=== PATIENT | female | born 1990 | race Two or more races ===

== ENCOUNTER 2024-09-01 13:37 | Emergency (ER) | payer BC, SELFPAY ==
[2024-09-01 13:38] VITALS: BMI 24.6
[2024-09-01 13:52] VITALS: BP 113/71; PULSE 71; RESP 18; TEMP 36.9; O2SAT 99
--- NOTE | 2024-09-01 14:11 | XR_ITS ---
Examination: PA lateral chest 2 views TECHNIQUE: Upright PA lateral chest 2 views INDICATIONS: Shortness of breath 2 weeks with burning sensation in the chest with breathing FINDINGS: Normal heart size Lungs are clear. The osseous structures are intact and mildly demineralized IMPRESSION: No active
--- NOTE | 2024-09-01 14:12 | PD.EDRME ---
Rapid Medical Screening Exam E Arrival date/time: 09/01/24 13:37 This is a 34-year-old female who presents to the emergency department with complaints of cough, chest pain with deep inspiration. Recently treated for bronchitis. I have greeted and performed a focused initial assessment of this patient. Initial appropriate labs ordered at this time. A comprehensive ED assessment and evaluation of the patient and analysis of all test and completion of medical decision making process will be conducted by additional ED provider. Chief Complaint: Shortness of Breath/Dyspnea Time Seen by Provider: 09/01/24 13:57 Vital signs: Vital Signs Temperature 98.5 F 09/01/24 13:52 Pulse Rate 71 09/01/24 13:52 Respiratory Rate 18 09/01/24 13:52 Blood Pressure 113/71 09/01/24 13:52 Pulse Oximetry (%) 99 09/01/24 13:52 Oxygen Delivery Method Room Air 09/01/24 13:52
[2024-09-01 15:11] LABS: Basophils % (Auto) 0 % (0-2.5); Eosinophils # (Auto) 0.2 Thou/mm3 (0.0-0.5); Eosinophils % (Auto) 3 % (0-10); Hematocrit 37.6 % (36.0-46.0); Hemoglobin 12.8 g/dL (12.0-16.0); Immature Granulocytes % (Auto) 0 % (0-0); Lymphocytes # (Auto) 1.5 Thou/mm3 (1.0-4.8); Lymphocytes % (Auto) 33 % (10-50); Mean Corpuscular Hemoglobin 31.5 pg (25.0-35.0); Mean Corpuscular Volume 93 fL (80-100); Monocytes # (Auto) 0.5 Thou/mm3 (0.0-0.8); Monocytes % (Auto) 11 % (0-12); Neutrophils # (Auto) 2.4 Thou/mm3 (1.8-7.7); Neutrophils % (Auto) 52 % (37-80); Nucleated Red Blood Cell % 0 /100 WBC (0); Platelet Count 163 Thou/mm3 (140-440); RDW Standard Deviation 44.6 fL (36.4-46.3); Red Blood Count 4.06 Miln/mm3 (4.00-5.20); White Blood Count 4.6 Thou/mm3 (3.6-11.0)
[2024-09-01 15:24] LABS: D-Dimer < 250 ng/mL (<600)
[2024-09-01 15:28] LABS: HCG,Qualitative Serum Negative
[2024-09-01 15:29] LABS: Alanine Aminotransferase 11 U/L (10-49); Albumin, Serum 4.3 gm/dL (3.5-5.0); Albumin/Globulin Ratio 1.7 (1.2-2.2); Alkaline Phosphatase 67 U/L (46-116); Anion Gap 4 (7-16); Aspartate Amino Transferase 20 U/L (0-34); BUN/Creatinine Ratio 8 Ratio (12-20); Bilirubin,Total 0.3 mg/dL (0.3-1.2); Blood Urea Nitrogen 6 mg/dL (9-23); Calcium 9.1 mg/dL (8.3-10.6); Calcium (Corrected) 9.1 mg/dL (8.5-10.1); Carbon Dioxide 27.7 mMol/L (20.0-31.0); Chloride 107 mMol/L (98-107); Creatinine (Component) 0.8 mg/dL (0.6-1.3); Estimated Creatinine Clearance 73.8 mL/min (>60); Globulin 2.5 gm/dL (2.3-3.5); Glucose 86 mg/dL (74-106); Osmolality,Calculated 274 (275-295); Potassium 4.2 mMol/L (3.4-5.1); Sodium 139 mMol/L (136-145); Total Protein 6.8 gm/dL (5.7-8.2); eGFR > 60 See Note
--- NOTE | 2024-09-01 18:36 | PD.EDADULT ---
ED General RME/HPI General Chief complaint: Shortness of Breath/Dyspnea Stated complaint: SENT BY PCP R/O PE Time Seen by Provider: 09/01/24 13:57 Arrival date/time: 09/01/24 13:37 RME / HPI RME / HPI narrative: 34-year-old female who presents to the emergency department with complaints of cough, chest pain with deep inspiration. This been ongoing for the last 2 weeks, severity mild. Recently treated for bronchitis. Was seen by PCP and was given antibiotic which the patient completed few days ago. Came back today for follow-up and was referred here to rule out PE. Patient denies any tachycardia denies any fever denies any other complaints. Related Data Home Medications ?Medication ?Instructions ?Recorded ?Confirmed levothyroxine 175 mcg tablet 175 mcg PO QDAY 01/04/18 04/26/21 (Synthroid) vortioxetine 5 mg tablet 5 mg PO QDAY 04/26/21 04/26/21 (Trintellix) pregabalin 200 mg capsule (Lyrica) 200 mg PO TID 04/27/21 04/27/21 Previous Rx's ?Medication ?Instructions ?Recorded ibuprofen 600 mg tablet 600 mg PO TID PRN pain #30 tabs 09/01/24 Allergies Allergy/AdvReac Type Severity Reaction Status Date / Time codeine Allergy Severe Itching Verified 01/19/24 15:16 sumatriptan AdvReac Severe paralysis Verified 01/19/24 15:16 Review of Systems Review of Systems Narrative Review of Systems: Review of system reviewed and within normal limits except mentioned in HPI ED Exam Narrative Physical exam: VITAL SIGNS: Reviewed. GENERAL APPEARANCE: Alert and interactive, follows commands, no acute distress, HEAD AND FACE: Non-traumatic. ENT: PERRL, pink conjunctivitis, eyelid no trauma, Mucous membrane moist. NECK: Supple, nontender, no nuchal rigidity. CHEST: No tenderness, no crepitus, no paradoxical movement, no retractions. LUNGS: Clear, well ventilated, symmetric, no rales, no wheezing, no ronchi, no stridor, good breath sounds bilaterally. HEART: Regular rate, regular rhythm, no murmur, no gallops. ABDOMEN: Soft, positive bowel sounds, nondistended, no guarding, nontender, no rebound, no masses, RECTAL: Deferred. GENITAL: Deferred. NEUROLOGICAL: Gross motor function intact sensory function intact, Appropriate for age. MUSCULOSKELETAL: low back nontender, full range of motion. EXTREMITIES: Nontender, full range of motion. SKIN: Color pink, dry, no rash, no lacerations, no abrasions, no contusions. LYMPHATICS: Deferred. Course Quality Measures none Orders Category Date Time Status XR chest 2V Stat Exams 09/01/24 14:11 Completed CBC Stat Lab 09/01/24 14:55 Completed CMP [Comprehensive Metabolic Panel] Stat Lab 09/01/24 14:55 Completed D-Dimer Stat Lab 09/01/24 14:55 Completed HCG,Qualitative Serum Stat Lab 09/01/24 14:55 Completed Vital Signs Vital signs: Vital Signs Temperature 98.5 F 09/01/24 13:52 Pulse Rate 71 09/01/24 13:52 Respiratory Rate 18 09/01/24 13:52 Blood Pressure 113/71 09/01/24 13:52 Pulse Oximetry (%) 99 09/01/24 13:52 Oxygen Delivery Method Room Air 09/01/24 13:52 MDM Patient data External records reviewed:: None Clinical information provided by:: none Social determinants that could affect healthcare access:: none Patient has the following chronic illnesses:: None How is presenting disease/condition affected by chronic disease/condition?: no chronic disease Evaluation data The following diagnostics were reviewed and interpreted by me:: lab results and radiology exam(s) Lab and/or radiology exams considered but not ordered:: Plan Interpretation Summary: I personally reviewed and interpreted the x-ray of this patient. There is no acute abnormalities found, no infiltrates no pneumothorax no hemothorax normal chest x-ray. Review of other structures was without significant abnormal findings also. I additionally reviewed the radiologist report and agree with the interpretation. D-dimer is normal there is of the labs unremarkable Medications Medications considered but not ordered:: none Medication administrations:: None Consultations Consultation(s) initiated? (list below): No Diagnosis Differential Diagnosis ED Complaint MDM: PE, chest pain, bronchitis Most likely diagnosis given after review of the tests above:: Chest pain, bronchitis Admission Indicated Admission indicated?: not indicated Explain why admission is indicated or not indicated:: None Admission Request Was there a request for admission?: No Disposition Plan Disposition Plan: Discharge Discharge Attestation Discharge Attestation: The patient was given an opportunity to ask questions and understood the discharge instructions. Discharge instructions specifically effects, indications for sooner follow up or return to the emergency department, and the expected course of current diagnosis. Patient condition: Stable Medical Decision Making MDM Narrative MDM Narrative: 34-year-old female who presents to the emergency department with complaints of cough, chest pain with deep inspiration. This been ongoing for the last 2 weeks, severity mild. Recently treated for bronchitis. Was seen by PCP and was given antibiotic which the patient completed few days ago. Came back today for follow-up and was referred here to rule out PE. Patient denies any tachycardia denies any fever denies any other complaints. Patient's workup today all came back normal. D-dimer is normal also. Results discussed with the patient. Patient chest pain could be related to her bronchitis. Differential Diagnosis Differential Diagnosis: PE, chest pain, bronchitis Lab Data 09/01/24 14:55 09/01/24 14:55 Labs: Lab Results 09/01/24 Range/Units 14:55 WBC 4.6 (3.6-11.0) Thou/mm3 RBC 4.06 (4.00-5.20) Miln/mm3 Hgb 12.8 (12.0-16.0) g/dL Hct 37.6 (36.0-46.0) % MCV 93 (80-100) fL MCH 31.5 (25.0-35.0) pg MCHC 34.0 (31.0-37.0) g/dl RDW Std Deviation 44.6 (36.4-46.3) fL Plt Count 163 (140-440) Thou/mm3 Neut % (Auto) 52 (37-80) % Lymph % (Auto) 33 (10-50) % Larue % (Auto) 11 (0-12) % Eos % (Auto) 3 (0-10) % Baso % (Auto) 0 (0-2.5) % Neut # (Auto) 2.4 (1.8-7.7) Thou/mm3 Lymph # (Auto) 1.5 (1.0-4.8) Thou/mm3 Larue # (Auto) 0.5 (0.0-0.8) Thou/mm3 Eos # (Auto) 0.2 (0.0-0.5) Thou/mm3 Baso # (Auto) 0.0 (0.0-0.2) Thou/mm3 Immature Gran # (Auto) 0.00 (0.00-0.00) Thou/mm3 Absolute Nucleated RBC 0.00 (0.00-0.00) Thou/mm3 Immature Gran % 0 (0-0) % Nucleated RBC % 0 (0) /100 WBC D-Dimer < 250 (<600) ng/mL Sodium 139 (136-145) mMol/L Potassium 4.2 (3.4-5.1) mMol/L Chloride 107 (98-107) mMol/L Carbon Dioxide 27.7 (20.0-31.0) mMol/L Anion Gap 4 L (7-16) BUN 6 L (9-23) mg/dL Creatinine 0.8 (0.6-1.3) mg/dL Estim Creat Clear Calc 73.8 (>60) mL/min eGFR > 60 (60 - ) See Note BUN/Creatinine Ratio 8 L (12-20) Ratio Glucose 86 (74-106) mg/dL Calculated Osmolality 274 L (275-295) Calcium 9.1 (8.3-10.6) mg/dL Corrected Calcium 9.1 (8.5-10.1) mg/dL Total Bilirubin 0.3 (0.3-1.2) mg/dL AST 20 (0-34) U/L ALT 11 (10-49) U/L Alkaline Phosphatase 67 (46-116) U/L Total Protein 6.8 (5.7-8.2) gm/dL Albumin 4.3 (3.5-5.0) gm/dL Globulin 2.5 (2.3-3.5) gm/dL Albumin/Globulin Ratio 1.7 (1.2-2.2) HCG, Qual Negative Discharge Plan Plan Patient Disposition: HOME (Self Care) Disposition Comment: stable Prescriptions/Referrals Prescriptions/Med Rec: New ibuprofen 600 mg tablet 600 mg PO TID PRN (Reason: pain) Qty: 30 0RF No Action levothyroxine [Synthroid] 175 mcg tablet 175 mcg PO QDAY Trintellix 5 mg Tablet 5 mg PO QDAY pregabalin [Lyrica] 200 mg Capsule 200 mg PO TID Referrals: SQ Gris Walker MD [Primary Care Provider] - In 1 week Problem List Clinical Impression: Chest pain, Cough Patient/Caregiver Discharge Instructions Discharge Activity: activity as tolerated Education Materials: ED Chest Pain, Noncardiac Additional Instructions: Thank you for the opportunity for serving you today. You are stable for discharged . You are advised to: Follow-up with your PCP in 1 to 2 days Return to ED for worsening of symptoms Increase oral fluids Take medication as prescribed Print Language: Gambian Stand Alone Forms: [employer] Award Info., Patient Portal Info Letter PA/[employer] Supervising Physician PA/[employer] Supervising Physician: MD Rosalva
== END 2024-09-01 19:01 | disposition home or self-care (01) ==
PROVIDERS: Nurse Practitioner Primary Care; Emergency Provider Emergency Medicine; PCP Family Medicine
DX: R05.9 Cough, unspecified (principal); R07.1 Chest pain on breathing
CPT/HCPCS: 36415; 71046; 80053; 84703; 85025; 85379; 99283

== ENCOUNTER → 2025-02-06 | Outpatient (CLI) | payer BC, SELFPAY ==
[2025-02-06 15:30] LABS: Misc Send Out* See Sep Rpt
[2025-02-06 16:38] LABS: Basophils % (Auto) 0 % (0-2.5); Eosinophils # (Auto) 0.1 Thou/mm3 (0.0-0.5); Eosinophils % (Auto) 1 % (0-10); Hematocrit 38.9 % (36.0-46.0); Hemoglobin 13.5 g/dL (12.0-16.0); Immature Granulocytes % (Auto) 0 % (0-0); Immature Granulocytes Auto 0.01 Thou/mm3 (0.00-0.00); Immature Reticulocyte Fraction 4.3 % (3.0-15.9); Lymphocytes # (Auto) 1.5 Thou/mm3 (1.0-4.8); Lymphocytes % (Auto) 31 % (10-50); Mean Corpuscular HGB Conc 34.7 g/dl (31.0-37.0); Mean Corpuscular Hemoglobin 32.2 pg (25.0-35.0); Mean Corpuscular Volume 93 fL (80-100); Monocytes # (Auto) 0.5 Thou/mm3 (0.0-0.8); Monocytes % (Auto) 9 % (0-12); Neutrophils # (Auto) 2.9 Thou/mm3 (1.8-7.7); Neutrophils % (Auto) 59 % (37-80); Nucleated Red Blood Cell % 0 /100 WBC (0); Platelet Count 281 Thou/mm3 (140-440); RDW Standard Deviation 45.1 fL (36.4-46.3); Red Blood Count 4.19 Miln/mm3 (4.00-5.20); Reticulocyte % (Auto) 1.1 % (0.5-1.5); Reticulocyte Absolute Auto 44.8 Biln/L (25.0-75.0); Reticulocyte Hgb Content 35.7 pg (28.0-35.0)
[2025-02-06 17:22] LABS: Alanine Aminotransferase 15 U/L (10-49); Albumin, Serum 4.5 gm/dL (3.5-5.0); Albumin/Globulin Ratio 1.7 (1.2-2.2); Alkaline Phosphatase 75 U/L (46-116); Anion Gap 6 (7-16); Aspartate Amino Transferase 16 U/L (0-34); BUN/Creatinine Ratio 10 Ratio (12-20); Bilirubin,Direct 0.1 mg/dL (0.0-0.3); Bilirubin,Total 0.4 mg/dL (0.3-1.2); Blood Urea Nitrogen 8 mg/dL (9-23); Calcium 9.3 mg/dL (8.3-10.6); Calcium (Corrected) 9.3 mg/dL (8.5-10.1); Carbon Dioxide 27.9 mMol/L (20.0-31.0); Chloride 108 mMol/L (98-107); Creatinine (Component) 0.8 mg/dL (0.6-1.3); Ferritin 78 ng/mL (7.3-270.7); Free T4 (Free Thyroxine) 1.22 ng/dL (0.89-1.76); Globulin 2.6 gm/dL (2.3-3.5); Glucose 86 mg/dL (74-106); Iron 58 mcg/dL (50-170); Osmolality,Calculated 280 (275-295); Potassium 4.5 mMol/L (3.4-5.1); Sodium 142 mMol/L (136-145); Thyroid Stimulating Hormone 4.98 uIU/mL (0.55-4.78); Total Iron Binding Capacity 338 mcg/dL (250-425); Total Protein 7.1 gm/dL (5.7-8.2); eGFR > 60 See Note
[2025-02-06 17:24] LABS: Folate 17.66 ng/mL (>5.38); Vitamin B12 271 pg/mL (211-911)
== END | disposition home or self-care (01) ==
PROVIDERS: PCP Family Medicine; Referring Provider Family Medicine; Visit Provider Family Medicine
DX: E03.8 Other specified hypothyroidism (principal); L29.9 Pruritus, unspecified
CPT/HCPCS: 36415; 80053; 82248; 82607; 82728; 82746; 83540; 83550; 84100; 84439; 84443; 85025; 85046

== ENCOUNTER 2025-03-18 19:58 | Emergency (ER) | payer BC, SELFPAY ==
[2025-03-18 19:59] VITALS: BMI 23.0
[2025-03-18 20:16] VITALS: BP 120/76; PULSE 74; RESP 16; TEMP 37.1; O2SAT 97
--- NOTE | 2025-03-18 20:39 | EDNOTE_ITS ---
ED General RME/HPI General Chief complaint: General Adult/Misc Complain Stated complaint: R SIDE OF FACE AND HEAD Time Seen by Provider: 03/18/25 20:25 Arrival date/time: 03/18/25 19:58 RME / HPI RME / HPI narrative: 34-year-old female presents to the ED with complaint of right ear pain and right facial pain for the past few days but much worse this morning. She denies any fever or chills but she has had a runny nose and nasal congestion. She denies sore throat, cough, nausea or vomiting, diarrhea or abdominal pain. She denies any visual or hearing changes but states she has felt a little lightheaded when she stands up. Related Data Home Medications ?Medication ?Instructions ?Recorded ?Confirmed levothyroxine 175 mcg tablet 175 mcg PO QDAY 01/04/18 04/26/21 (Synthroid) vortioxetine 5 mg tablet 5 mg PO QDAY 04/26/21 (Trintellix) pregabalin 200 mg capsule (Lyrica) 200 mg PO TID 04/2704/27/21 Previous Rx's ?Medication ?Instructions ?Recorded ibuprofen 600 mg tablet 600 mg PO TID PRN pain #30 t abs 09/01/24 amoxicillin 875 mg-potassium 1 tab PO BID SINUSITIS #2 0 tabs 03/18/25 clavulanate 125 mg tablet fluticasone propionate 50 2 spray intranasal QDAY 30 d ays 03/18/25 mcg/actuation nasal #16 grams spray,suspension (Flonase Allergy Relief) Allergies Allergy/AdvReac Type Severity Reaction Status Date / Time codeine Allergy Severe Itching Verified 03/18/25 20:04 sumatriptan AdvReac Severe paralysis Verified 03/18/25 20:04 Course Vital Signs Vital signs: Vital Signs Temperature 98.8 F 03/18/25 20:16 Pulse Rate 74 03/18/25 20:16 Respiratory Rate 16 03/18/25 20:16 Blood Pressure 120/76 03/18/25 20:16 Pulse Oximetry (%) 97 03/18/25 20:16 Oxygen Delivery Method Room Air 03/18/25 20:16 Discharge Plan Plan Patient Disposition: HOME (Self Care) Discharge Disposition comment: Stable and improved Prescriptions/Referrals Prescriptions/Med Rec: New amoxicillin-pot clavulanate 875-125 mg tablet 1 tab PO BID Qty: 20 0RF fluticasone propionate [Flonase Allergy Relief] 50 mcg/actuation spray,suspension 2 spray intranasal QDAY 30 Days Qty: 16 0RF Rx Instructions: administer into each nostril No Action levothyroxine [Synthroid] 175 mcg tablet 175 mcg PO QDAY Trintellix 5 mg Tablet 5 mg PO QDAY pregabalin [Lyrica] 200 mg Capsule 200 mg PO TID ibuprofen 600 mg tablet 600 mg PO TID PRN (Reason: pain) Qty: 30 0RF Referrals: No Primary/Family,Physician [Primary Care Provider] - In 1 week Problem List Clinical Impression: Otitis media, Acute maxillary sinusitis Patient/Caregiver Discharge Instructions Education Materials: ED Otitis Media Antibiotic ..., ED Sinusitis (Antibiotic Treatment) Additional Instructions: Take the antibiotics as prescribed and complete the course even though you may be feeling better. Follow-up with your primary care physician in 24 to 48 hours. Return to the ED for any new or worsening symptoms. Print Language: Greenlandic Stand Alone Forms: [employer] Award Info., Patient Portal Info Letter PA/MARINE H[employer]ITAT RESOURCE SPECIALIST Supervising Physician PA/MARINE [employer] RESOURCE SPECIALIST Supervising Physician: Dr Blackwell
[2025-03-18] MEDS: AMOXICILLIN/POT CLAV 875 TABLET 1 TAB PO (21:38)
[2025-03-18] MEDS: KETOROLAC INJ 60 MG/2 ML VIAL 30 MG IM (21:59)
== END 2025-03-18 22:09 | disposition home or self-care (01) ==
PROVIDERS: Emergency Provider Emergency Medicine; PCP Family Medicine
DX: H66.91 Otitis media, unspecified, right ear (principal); J01.00 Acute maxillary sinusitis, unspecified
CPT/HCPCS: 81025; 96372; 99283; J1885; A9270

== ENCOUNTER 2025-05-22 19:15 | Emergency (ER) | payer BC, SELFPAY ==
[2025-05-22 19:17] VITALS: BMI 23.2
[2025-05-22 19:39] VITALS: BP 120/79; PULSE 66; RESP 18; TEMP 36.9; O2SAT 98
--- NOTE | 2025-05-22 20:34 | EDNOTE_ITS ---
ED Abdominal Pain RME/HPI General Chief Complaint: Abdominal Pain Stated complaint: EPIGASTRIC PAIN,N/V/D Time seen by provider: 05/22/25 19:26 Arrival date/time: 05/22/25 19:15 RME / HPI RME / HPI narrative: Dr. Musa?[facility] ED Evaluation: 35yo female s/p gastric bypass, PUD now presenting with epigastric/RUQ pain x 1 week with several bouts of nonbloody vomiting and diarrhea. No fever, URI, or cough. PO intake worsens symptoms. PMH includes asthma, PUD, thyroid insufficiency. PSH includes gastric bypass, cholecystectomy, appendectomy, . Allergies to codeine. Related Data Home Medications ?Medication ?Instructions ?Recorded ?Confirmed levothyroxine 175 mcg tablet 175 mcg PO QDAY 01/04/18 04/26/21 (Synthroid) vortioxetine 5 mg tablet 5 mg PO QDAY 04/26/21 (Trintellix) pregabalin 200 mg capsule (Lyrica) 200 mg PO TID 04/2704/27/21 Previous Rx's ?Medication ?Instructions ?Recorded ibuprofen 600 mg tablet 600 mg PO TID PRN pain #30 t abs 09/01/24 amoxicillin 875 mg-potassium 1 tab PO BID SINUSITIS #2 0 tabs 03/18/25 clavulanate 125 mg tablet pantoprazole 40 mg tablet,delayed 40 mg PO QDAY #30 ta bs 05/23/25 release (Protonix) Allergies Allergy/AdvReac Type Severity Reaction Status Date / Time codeine Allergy Severe Itching Verified 05/22/25 19:16 sumatriptan AdvReac Severe paralysis Verified 05/22/25 19:16 Review of Systems Review of Systems Systems Reviewed: All systems reviewed, normal except as documented Past Medical History Past Medical History CARDIAC: Positive Atrial Fibrillation; Negative Congestive Heart Failure RESPIRATORY: Positive Asthma; Negative Chronic Obstructive Pulmonary Disease (COPD) GENITOURINARY: Negative Renal Disease ENDOCRINE: Positive Hypothyroidism; Negative Diabetes Mellitus Type 1 or Diabetes Mellitus Type 2 PSYCHO/SOCIAL: Positive Psychiatric Problems, Recreational Drug Use, Bipolar Disorder, Depression, Anxiety, Self-Mutilation, Attention Deficit Hyperactivity Disorder and Post Traumatic Stress Disorder Surgical History SURGICAL: Positive Gastric Bypass Surgery and Gastrostomy Social History SMOKING STATUS: Never smoker SUBSTANCE USE: marijuana ED Exam Narrative Physical exam: GENERAL APPEARANCE: alert and oriented x 4, well-developed, well-nourished, nontoxic, no acute distress VITALS: All vitals were reviewed and the pulse ox is 98% on room air, which is normal according to my interpretation. HEENT: Normocephalic, atraumatic; pupils equal, round, reactive to light; EOMI; mucous membranes pink, moist; oropharynx clear NECK: Supple LUNGS: CTABL; no wheezes, no rales, no rhonchi HEART: Regular rate, regular rhythm; normal S1, S2; no murmurs ABDOMEN: non distended; soft, point tenderness epigastric > RUQ, slight guarding, no gross peritoneal findings BACK: no CVA tenderness EXTREMITIES: atraumatic; no edema NEUROLOGIC: awake; alert and oriented x4; cranial nerves II-XII grossly intact; no focal sensory or motor deficits PSYCHIATRIC: appropriate mood and affect SKIN: warm, dry, normal color; no rashes Course Quality Measures none Orders Category Date Time Status EKG (ED ONLY) *Do not use* NOW Care 05/22/25 20:51 Completed EKG (ED Only) Stat Exams 05/22/25 20:51 Draft CBC Stat Lab 05/22/25 22:10 Completed Comprehensive Metabolic Panel Stat Lab 05/22/25 22:10 Completed Lipase Stat Lab 05/22/25 22:10 Completed Magnesium Stat Lab 05/22/25 22:10 Completed Urinalysis Stat Lab 05/22/25 22:11 Completed Hyoscyamine Sulf [Levsin] Med 05/22/25 20:51 Discontinued 0.125 mg PO X1 ONE Lidocaine 2% Viscous [Xylocaine 2% Viscous] Med 05/22/25 20:51 Discontinued 15 ml PO X1 ONE mg Hyd/Al Hyd/[place] Susp [Maalox Susp] Med 05/22/25 20:51 Discontinued 30 ml PO X1 ONE Vital Signs Vital signs: Vital Signs Temperature 98.4 F 05/22/25 19:39 Pulse Rate 66 05/22/25 19:39 Respiratory Rate 18 05/22/25 19:39 Blood Pressure 120/79 05/22/25 19:39 Pulse Oximetry (%) 98 05/22/25 19:39 Oxygen Delivery Method Room Air 05/22/25 19:39 Abdominal Pain MDM MDM Narrative MDM Narrative:: Scribe Attestation: 05/22/25 - Daniela Ziegler am scribing for and in the presence of Dr. Colvin. 35yo female s/p gastric bypass, PUD now presenting with epigastric/RUQ pain x 1 week with several bouts of nonbloody vomiting and diarrhea. No fever, URI, or cough. Please see PE findings. Lab markers including CBC and chemistries are unremarkable except for marginally elevated lipase of 61. Patient administered GI cocktail with [id number] relief. Will place the patient on a GI regimen, recommend clear liquid diet for the next 24-48 hours, and refer her to her GI specialist as she may require endoscopy. Patient is stable to be discharged home. Patient data External records reviewed:: [facility] previous records (Per chart review, patient has no relevant previous ED visits.) Clinical information provided by:: patient Social determinants that could affect healthcare access:: none Patient has the following chronic illnesses:: asthma, hypothyroidism How is presenting disease/condition affected by chronic disease/condition?: uneffected by Evaluation data The following diagnostics were reviewed and interpreted by me:: lab results and EKG tracing(s) Lab and/or radiology exams considered but not ordered:: none Interpretation Summary: EKG done at 2259, NSR, rate of 61, no acute pathological ST segment changes, no ectopy, normal intervals, right axis deviation, incomplete RBBB, according to my interpretation. Medications / Prescriptions Medications or Prescriptions considered but not ordered:: none Medication administrations:: Medication Administration History Discontinued Medications Al Hydrox/Mg Hydrox/Simethicone (Mg Hyd/Al Hyd/[place] (Maalox Reg) Susp 30 Ml Udc) 30 ml PO X1 ONE Stop: 05/22/25 20:52 Last Admin: 05/22/25 21:04 Dose: 30 ml Documented By: EF Hyoscyamine (Hyoscyamine Sulf 0.125 Mg Tab.Subl) 0.125 mg PO X1 ONE Stop: 05/22/25 20:52 Last Admin: 05/22/25 21:05 Dose: Not Given Documented By: EF Non-Admin Reason: Cancelled by Provider Lidocaine HCl (Lidocaine Viscous 2% 15 Ml Udc) 15 ml PO X1 ONE Stop: 05/22/25 20:52 Last Admin: 05/22/25 21:04 Dose: 15 ml Documented By: EF see above Consultations Consultation(s) initiated? (list below): No Diagnosis Differential diagnosis abdominal pain: diverticulitis, pancreatitis and other (PUD, GERD, gastritis) Most likely diagnosis given after review of the tests above:: gastritis Admission Indicated Admission indicated?: not indicated Admission Request Was there a request for admission?: No Disposition Plan Disposition Plan: Discharge Discharge Attestation Discharge Attestation: The patient and all family members were given an opportunity to ask questions and understood the discharge instructions. Discharge instructions specifically effects, indications for sooner follow up or return to the emergency department, and the expected course of current diagnosis. Patient condition: Stable Discharge Plan Plan Patient Disposition: HOME (Self Care) Prescriptions/Referrals Prescriptions/Med Rec: New pantoprazole [Protonix] 40 mg tablet,delayed release (DR/EC) 40 mg PO QDAY Qty: 30 0RF No Action levothyroxine [Synthroid] 175 mcg tablet 175 mcg PO QDAY Trintellix 5 mg Tablet 5 mg PO QDAY pregabalin [Lyrica] 200 mg Capsule 200 mg PO TID amoxicillin-pot clavulanate 875-125 mg tablet 1 tab PO BID Qty: 20 0RF ibuprofen 600 mg tablet 600 mg PO TID PRN (Reason: pain) Qty: 30 0RF Referrals: Gris Stein MD [Primary Care Provider] - In 1 week Problem List Clinical Impression: Gastritis Patient/Caregiver Discharge Instructions Discharge Activity: activity as tolerated Diet Instructions: Clear liquid diet x 24 to 48 hours and advance as tolerated. Education Materials: ED PEPTIC ULCER vs GASTRITIS Additional Instructions: Clear liquid diet x 24 to 48 hours. Medication as directed. Follow-up with GI specialist for consideration of upper endoscopy. Return if worsening Print Language: Algerian Stand Alone Forms: [employer] Award Info., Patient Portal Info Letter
--- NOTE | 2025-05-22 20:51 | EKG_ITS ---
[facility] Test Date: 2025-05-22 Pat Name: CAMILLE ANDRES Department: Room: - Gender: Female Java Consultant: : 1990 Requested By: Evan Colon Order Number: [id number] Reading MD: Evan Colon Measurements Intervals [place] Rate: 61 P: 11 CO: 143 QRS: 54 QRSD: 86 T: 32 QT: 384 QTc: 388 Interpretive Statements SINUS RHYTHM LOW QRS VOLTAGE IN PRECORDIAL LEADS [QRS DEFLECTION < 1.0 mV IN CHEST LEADS] POSSIBLE RIGHT VENTRICULAR CONDUCTION DELAY [RSR (QR) IN V1/V2] No previous ECG available for comparison /store/S0/[id number]/[id number].pdf
[2025-05-22] MEDS: MG HYD/AL HYD/SIME (Maalox Reg) SUSP 30 ML UDC PO (21:04)
[2025-05-22] MEDS: LIDOCAINE VISCOUS 2% 15 ML UDC PO (21:04)
[2025-05-22 22:35] LABS: Collection Type, Urine Clean Catch
[2025-05-22 22:39] LABS: Basophils # (Auto) 0.0 Thou/mm3 (0.0-0.2); Basophils % (Auto) 0 % (0-2.5); Eosinophils # (Auto) 0.1 Thou/mm3 (0.0-0.5); Eosinophils % (Auto) 1 % (0-10); Hematocrit 41.7 % (36.0-46.0); Hemoglobin 13.5 g/dL (12.0-16.0); Immature Granulocytes Auto 0.02 Thou/mm3 (0.00-0.00); Lymphocytes # (Auto) 2.0 Thou/mm3 (1.0-4.8); Lymphocytes % (Auto) 28 % (10-50); Mean Corpuscular HGB Conc 32.4 g/dl (31.0-37.0); Mean Corpuscular Hemoglobin 30.8 pg (25.0-35.0); Mean Corpuscular Volume 95 fL (80-100); Monocytes # (Auto) 0.4 Thou/mm3 (0.0-0.8); Monocytes % (Auto) 6 % (0-12); Neutrophils # (Auto) 4.7 Thou/mm3 (1.8-7.7); Neutrophils % (Auto) 64 % (37-80); Nucleated Red Blood Cell # 0.00 Thou/mm3 (0.00-0.00); Nucleated Red Blood Cell % 0 /100 WBC (0); Platelet Count 212 Thou/mm3 (140-440); RDW Standard Deviation 45.5 fL (36.4-46.3); Red Blood Count 4.38 Miln/mm3 (4.00-5.20); White Blood Count 7.2 Thou/mm3 (3.6-11.0)
[2025-05-22 22:52] LABS: Bacteria,Urine Rare; Bilirubin,Urine Negative (Negative); Blood,Urine Negative (Negative); Clarity,Urine Clear (Clear/Hazy); Color,Urine Yellow (Lt Yel-Yel); Glucose, Urine Negative (Negative); Ketones,Urine Trace (Negative); Leukocyte Esterase,Urine Negative (Negative); Nitrite,Urine Negative (Negative); PH,Urine 5.5 (5.0-7.0); Protein,Urine Negative (Neg - Trace); RBC,Urine 2 /hpf (0-3); Specific Gravity,Urine 1.020 (1.001-1.035); Squamous Epithelial Cell,Urine 4 /hpf (0-5); Urobilinogen,Urine Negative mg/dL (0.0-1.0); WBC,Urine 6 /hpf (0-5)
[2025-05-22 23:20] LABS: Alanine Aminotransferase 17 U/L (10-49); Albumin, Serum 5.0 gm/dL (3.5-5.0); Albumin/Globulin Ratio 2.0 (1.2-2.2); Alkaline Phosphatase 80 U/L (46-116); Anion Gap 10 (7-16); Aspartate Amino Transferase 20 U/L (0-34); BUN/Creatinine Ratio 7 Ratio (12-20); Bilirubin,Total 0.3 mg/dL (0.3-1.2); Blood Urea Nitrogen < 5 mg/dL (9-23); Calcium 9.8 mg/dL (8.3-10.6); Calcium (Corrected) 9.8 mg/dL (8.5-10.1); Carbon Dioxide 25.4 mMol/L (20.0-31.0); Chloride 107 mMol/L (98-107); Creatinine (Component) 0.7 mg/dL (0.6-1.3); Estimated Creatinine Clearance 81.3 mL/min (>60); Globulin 2.5 gm/dL (2.3-3.5); Glucose 83 mg/dL (74-106); Magnesium 2.0 mg/dL (1.6-2.6); Osmolality,Calculated 279 (275-295); Potassium 3.7 mMol/L (3.4-5.1); Sodium 142 mMol/L (136-145); Total Protein 7.5 gm/dL (5.7-8.2); eGFR > 60 See Note
[2025-05-22 23:53] LABS: Lipase 61 U/L (12-53)
[2025-05-23] MEDS: HYDROcodone/APAP 5/325 TABLET 1 TAB PO (00:23)
[2025-05-23 00:30] VITALS: RESP 12
== END 2025-05-23 00:31 | disposition home or self-care (01) ==
PROVIDERS: Emergency Provider Emergency Medicine; PCP Family Medicine
DX: K29.70 Gastritis, unspecified, without bleeding (principal); J45.909 Unspecified asthma, uncomplicated
CPT/HCPCS: 36415; 80053; 81001; 83690; 83735; 85025; 93005; 99283; J3490; A9270

== ENCOUNTER 2025-06-05 11:43 | Emergency (ER) | payer BC, SELFPAY ==
[2025-06-05 12:30] VITALS: BP 111/76; PULSE 72; RESP 16; TEMP 37; O2SAT 99; BMI 23.6
--- NOTE | 2025-06-05 12:37 | XR_ITS ---
Examination: CT abdomen and pelvis without contrast. Coronal 3-D reconstructions. Sagittal 2-D reconstructions. Date and time of exam:August 05, 2025 1526 hours, comparison June 06, 2016 INDICATIONS: Onset right-sided flank pain with nausea vomiting today CTDI: vol (mGy): 5.82 DLP: (mGycm): 273 Technique: Axial images of the abdomen have been obtained, 3 mm slice thickness Intravenous contrast material has not been administered. Low dose protocols were performed. One or more of the following dose reduction techniques were used; automated exposure control, adjustment of the mA and/or KV according to patient size, use of iterative reconstruction technique. Findings: No focal liver or splenic lesions Absent gallbladder No pancreatic or adrenal mass. No renal or ureteral calculi, no hydronephrosis Aorta normal size No bowel obstruction No pericecal inflammatory change No pelvic mass No bladder mass or bladder calculi The osseous structures are intact IMPRESSION: No renal or ureteral calculi, no hydronephrosis No CT findings of appendicitis bowel obstruction or diverticulitis No bladder mass or bladder calculi
--- NOTE | 2025-06-05 12:38 | PD.EDRME ---
Rapid Medical Screening Exam RME Arrival date/time: 06/05/25 11:43 35-year-old female presents to the emergency dept today for complaint of abdominal pain Chief Complaint: Abdominal Pain Time Seen by Provider: 06/05/25 12:08 Vital signs: Vital Signs Temperature 98.6 F 06/05/25 12:30 Pulse Rate 72 06/05/25 12:30 Respiratory Rate 16 06/05/25 12:30 Blood Pressure 111/76 06/05/25 12:30 Pulse Oximetry (%) 99 06/05/25 12:30 Oxygen Delivery Method Room Air 06/05/25 12:30
[2025-06-05 13:10] LABS: Basophils # (Auto) 0.0 Thou/mm3 (0.0-0.2); Basophils % (Auto) 1 % (0-2.5); Eosinophils # (Auto) 0.1 Thou/mm3 (0.0-0.5); Eosinophils % (Auto) 2 % (0-10); Hematocrit 38.6 % (36.0-46.0); Hemoglobin 13.0 g/dL (12.0-16.0); Immature Granulocytes Auto 0.01 Thou/mm3 (0.00-0.00); Lymphocytes # (Auto) 1.6 Thou/mm3 (1.0-4.8); Lymphocytes % (Auto) 37 % (10-50); Mean Corpuscular HGB Conc 33.7 g/dl (31.0-37.0); Mean Corpuscular Hemoglobin 31.0 pg (25.0-35.0); Mean Corpuscular Volume 92 fL (80-100); Monocytes # (Auto) 0.4 Thou/mm3 (0.0-0.8); Monocytes % (Auto) 10 % (0-12); Neutrophils # (Auto) 2.1 Thou/mm3 (1.8-7.7); Neutrophils % (Auto) 50 % (37-80); Nucleated Red Blood Cell # 0.00 Thou/mm3 (0.00-0.00); Nucleated Red Blood Cell % 0 /100 WBC (0); Platelet Count 225 Thou/mm3 (140-440); RDW Standard Deviation 43.6 fL (36.4-46.3); Red Blood Count 4.20 Miln/mm3 (4.00-5.20); White Blood Count 4.1 Thou/mm3 (3.6-11.0)
[2025-06-05 13:23] LABS: Collection Type, Urine Clean Catch
[2025-06-05 13:33] LABS: Alanine Aminotransferase 18 U/L (10-49); Albumin, Serum 4.4 gm/dL (3.5-5.0); Albumin/Globulin Ratio 1.9 (1.2-2.2); Alkaline Phosphatase 84 U/L (46-116); Anion Gap 11 (7-16); Aspartate Amino Transferase 22 U/L (0-34); BUN/Creatinine Ratio 9 Ratio (12-20); Bilirubin,Total 0.4 mg/dL (0.3-1.2); Blood Urea Nitrogen 6 mg/dL (9-23); Calcium 9.8 mg/dL (8.3-10.6); Calcium (Corrected) 9.8 mg/dL (8.5-10.1); Carbon Dioxide 25.6 mMol/L (20.0-31.0); Chloride 105 mMol/L (98-107); Creatinine (Component) 0.7 mg/dL (0.6-1.3); Estimated Creatinine Clearance 81.9 mL/min (>60); Globulin 2.3 gm/dL (2.3-3.5); Glucose 85 mg/dL (74-106); Lipase 39 U/L (12-53); Osmolality,Calculated 279 (275-295); Potassium 4.1 mMol/L (3.4-5.1); Sodium 142 mMol/L (136-145); Total Protein 6.7 gm/dL (5.7-8.2); eGFR > 60 See Note
[2025-06-05 13:41] LABS: Bilirubin,Urine Negative (Negative); Blood,Urine Negative (Negative); Clarity,Urine Clear (Clear/Hazy); Color,Urine Yellow (Lt Yel-Yel); Culture Indicated,Urine Not Indicated; Glucose, Urine Negative (Negative); Hyaline Casts,Urine < 1 /hpf (0-1); Ketones,Urine 1+ (Negative); Leukocyte Esterase,Urine Negative (Negative); Nitrite,Urine Negative (Negative); PH,Urine 6.0 (5.0-7.0); Protein,Urine Negative (Neg - Trace); RBC,Urine 5 /hpf (0-3); Specific Gravity,Urine 1.022 (1.001-1.035); Squamous Epithelial Cell,Urine 9 /hpf (0-5); Urobilinogen,Urine 2.0 mg/dL (0.0-1.0); WBC,Urine 1 /hpf (0-5)
[2025-06-05 14:28] LABS: HCG Qualitative,Urine Negative
[2025-06-05] MEDS: MG HYD/AL HYD/SIME (Maalox Reg) SUSP 30 ML UDC PO (16:44)
--- NOTE | 2025-06-15 08:51 | EDNOTE_ITS ---
<Statement entered by Yee Breaux MD - 06/23/25 09:41> As co-signing physician, I was present and available for consult prn. I concur with the plan and care as documented by the midlevel provider. ED Abdominal Pain RME/HPI General Chief Complaint: Abdominal Pain Stated complaint: ABD PAIN 8/10; PANCREATITIS PER MD Time seen by provider: 06/05/25 12:08 Arrival date/time: 06/05/25 11:43 35-year-old female with a history of pancreatitis presents to the emergency room with a chief complaint of 8 out of 10 abdominal pain x 1 day Source: patient Mode of arrival: ambulatory Limitations: no limitations RME / HPI RME / HPI narrative: 06/05/25 11:43 35-year-old female presents to the emergency dept today for complaint of abdominal pain Related Data Home Medications ?Medication ?Instructions ?Recorded ?Confirmed levothyroxine 175 mcg tablet 175 mcg PO QDAY 01/04/18 04/26/21 (Synthroid) vortioxetine 5 mg tablet 5 mg PO QDAY 04/26/21 (Trintellix) pregabalin 200 mg capsule (Lyrica) 200 mg PO TID 04/2704/27/21 Previous Rx's ?Medication ?Instructions ?Recorded ibuprofen 600 mg tablet 600 mg PO TID PRN pain #30 t abs 09/01/24 amoxicillin 875 mg-potassium 1 tab PO BID SINUSITIS #2 0 tabs 03/18/25 clavulanate 125 mg tablet doxylamine succinate 25 mg tablet 25 mg PO Q6H PRN elder sea #20 tabs 05/23/25 hyoscyamine sulfate 0.125 mg 0.125 mg PO TID cramping #14 tabs 05/23/25 sublingual tablet (Levsin/SL) pantoprazole 40 mg tablet,delayed 40 mg PO QDAY #30 ta bs 05/23/25 release (Protonix) omeprazole 40 mg capsule,delayed 40 mg PO QDAY #20 cap s 06/05/25 release Allergies Allergy/AdvReac Type Severity Reaction Status Date / Time codeine Allergy Severe Itching Verified 06/05/25 11:46 sumatriptan AdvReac Severe paralysis Verified 06/05/25 11:46 Review of Systems Review of Systems Systems Reviewed: All systems reviewed, normal except as documented Constitutional Constitutional: Reports system reviewed and no additional complaints, except as documented, Denies fatigue, Denies fever(s), Denies headache(s) and Denies weakness Eyes Eyes: Reports system reviewed and no additional complaints, except as documented, Denies blurry vision and Denies change in vision ENT Ears, Nose, Mouth, and Throat: Reports system reviewed and no additional complaints, except as documented, Denies otalgia, Denies headache(s), Denies nasal congestion, Denies throat swelling and Denies vertigo Cardiovascular Cardiovascular: Reports system reviewed and no additional complaints, except as documented, Denies chest pain, Denies dyspnea and Denies dyspnea on exertion Respiratory Respiratory: Reports system reviewed and no additional complaints, except as documented, Denies chest congestion, Denies cough, Denies dyspnea, Denies dyspnea on exertion and Denies wheezing Gastrointestinal Gastrointestinal: Reports system reviewed and no additional complaints, except as documented, Reports abdominal pain, Reports cramping, Reports nausea and Denies vomiting Genitourinary Genitourinary: Reports system reviewed and no additional complaints, except as documented Musculoskeletal Musculoskeletal: Reports system reviewed and no additional complaints, except as documented and Denies back pain Integumentary/Breasts Skin/Breast: Reports system reviewed and no additional complaints, except as documented and Denies wounds Neurologic Neurologic: Reports system reviewed and no additional complaints, except as documented, Denies confusion, Denies headache(s), Denies lack of coordination, Denies vertigo and Denies weakness Psychiatric Psychiatric: Reports system reviewed and no additional complaints, except as documented, Denies anxiety, Denies confusion, Denies depression, Denies paranoia, Denies suicidal ideation and Denies tactile hallucinations Endocrine Endocrine: Reports system reviewed and no additional complaints, except as documented and Denies fatigue Hematologic/Lymphatic Hematologic/Lymphatic: Reports system reviewed and no additional complaints, except as documented and Denies lymphadenopathy Allergic/Immunologic Allergic/Immunologic: Reports system reviewed and no additional complaints, except as documented, Denies throat swelling, Denies urticaria and Denies wheezing Past Medical History Past Medical History CARDIAC: Positive Atrial Fibrillation; Negative Congestive Heart Failure RESPIRATORY: Positive Asthma; Negative Chronic Obstructive Pulmonary Disease (COPD) GENITOURINARY: Negative Renal Disease ENDOCRINE: Positive Hypothyroidism; Negative Diabetes Mellitus Type 1 or Diabetes Mellitus Type 2 PSYCHO/SOCIAL: Positive Psychiatric Problems, Recreational Drug Use, Bipolar Disorder, Depression, Anxiety, Self-Mutilation, Attention Deficit Hyperactivity Disorder and Post Traumatic Stress Disorder Surgical History SURGICAL: Positive Gastric Bypass Surgery and Gastrostomy Social History SMOKING STATUS: Never smoker SUBSTANCE USE: marijuana ED Exam General Limitations: Present no limitations General appearance: Present alert and in no apparent distress Head Head exam: Present atraumatic Eye Eye exam: Present normal appearance, PERRL and EOMI ENT ENT exam: Present normal exam, normal oropharynx and mucous membranes moist Neck Neck exam: Present normal inspection, full ROM and trachea midline Chest Chest inspection: Present normal inspection and symmetric chest wall rise Respiratory Respiratory exam: Present normal lung sounds bilaterally; Absent respiratory distress, wheezes, stridor, accessory muscle use or prolonged expiratory phase Cardiovascular Cardiovascular exam: Present regular rate, normal rhythm and normal heart sounds; Absent tachycardia Abdominal Exam Abdominal exam: Present soft, tenderness and normal bowel sounds; Absent distention, guarding, rebound, rigidity, Link's sign or tenderness at McBurney's Point Abdominal tenderness: Present diffuse and moderate Extremities Exam Extremities exam: Present normal inspection and full ROM Back Exam Back exam: Present normal inspection and full ROM Neurological Exam Neurological exam: Present alert, oriented X3 and CN II-XII intact Psychiatric Psychiatric exam: Present normal affect and normal mood Skin Skin exam: Present warm, dry, intact and normal color Course Quality Measures none Orders Category Date Time Status CT abdomen pelvis wo con Stat Exams 06/05/25 12:37 Completed CBC Stat Lab 06/05/25 12:45 Completed Comprehensive Metabolic Panel Stat Lab 06/05/25 12:45 Completed HCG Qualitative,Urine Stat Lab 06/05/25 13:00 Completed Lipase Stat Lab 06/05/25 12:45 Completed UA, C/S IF [Urinalysis, C/S if Indicated] Stat Lab 06/05/25 13:00 Completed mg Hyd/Al Hyd/[place] Susp [Maalox Susp] Med 06/05/25 16:37 Discontinued 30 ml PO X1 ONE Vital Signs Vital signs: Vital Signs Temperature 98.6 F 06/05/25 12:30 Pulse Rate 72 06/05/25 12:30 Respiratory Rate 16 06/05/25 12:30 Blood Pressure 111/76 06/05/25 12:30 Pulse Oximetry (%) 99 06/05/25 12:30 Oxygen Delivery Method Room Air 06/05/25 12:30 Abdominal Pain MDM MDM Narrative MDM Narrative:: 35-year-old female with a history of pancreatitis presents to the emergency room with a chief complaint of 8 out of 10 abdominal pain x 1 day Patient is hemodynamically stable and in no apparent distress. She is afebrile not tachycardic not tachypneic Physical examination shows diffuse 8 out of 10 abdominal pain with palpation. The patient does not have any rebound tenderness, there is no tenderness to McBurney's point and the patient has a negative Link sign CT of the abdomen and pelvis was completed and was negative for any acute findings. Patient CBC CMP and lipase were all within normal limits. Patient's urinalysis was within normal limits Patient was discharged and educated to follow-up with primary care provider in the next 24 to 48 hours and return to the emergency room for any evidence of worsening signs or symptoms Patient data External records reviewed:: [facility] previous records Clinical information provided by:: patient Social determinants that could affect healthcare access:: none Patient has the following chronic illnesses:: No chronic illness How is presenting disease/condition affected by chronic disease/condition?: no chronic disease Evaluation data The following diagnostics were reviewed and interpreted by me:: lab results and radiology exam(s) Lab and/or radiology exams considered but not ordered:: Labs and radiology exams considered and ordered Interpretation Summary: Abdominal CT-Findings: No focal liver or splenic lesions Absent gallbladder No pancreatic or adrenal mass. No renal or ureteral calculi, no hydronephrosis Aorta normal size No bowel obstruction No pericecal inflammatory change No pelvic mass No bladder mass or bladder calculi The osseous structures are intact IMPRESSION: No renal or ureteral calculi, no hydronephrosis No CT findings of appendicitis bowel obstruction or diverticulitis No bladder mass or bladder calculi Medications / Prescriptions Medications or Prescriptions considered but not ordered:: Medication given Medication administrations:: Medication Administration History Discontinued Medications Al Hydrox/Mg Hydrox/Simethicone (Mg Hyd/Al Hyd/[place] (Maalox Reg) Susp 30 Ml Udc) 30 ml PO X1 ONE Stop: 06/05/25 16:38 Last Admin: 06/05/25 16:44 Dose: 30 ml Documented By: LIZA Comments: SCANNER NOT WORKING Medication given Consultations Consultation(s) initiated? (list below): No Diagnosis Differential diagnosis abdominal pain: abdominal pain, acute appendicitis, diverticulitis, gastroenteritis, pancreatitis and other (Gastritis) Most likely diagnosis given after review of the tests above:: Gastritis Admission Indicated Admission indicated?: not indicated Admission Request Was there a request for admission?: No Disposition Plan Disposition Plan: Discharge Discharge Attestation Discharge Attestation: The patient and all family members were given an opportunity to ask questions and understood the discharge instructions. Discharge instructions specifically effects, indications for sooner follow up or return to the emergency department, and the expected course of current diagnosis. Patient condition: Stable Discharge Plan Plan Patient Disposition: HOME (Self Care) Discharge Disposition comment: Stable Prescriptions/Referrals Prescriptions/Med Rec: New omeprazole 40 mg capsule,delayed release(DR/EC) 40 mg PO QDAY Qty: 20 0RF No Action levothyroxine [Synthroid] 175 mcg tablet 175 mcg PO QDAY Trintellix 5 mg Tablet 5 mg PO QDAY pregabalin [Lyrica] 200 mg Capsule 200 mg PO TID amoxicillin-pot clavulanate 875-125 mg tablet 1 tab PO BID Qty: 20 0RF ibuprofen 600 mg tablet 600 mg PO TID PRN (Reason: pain) Qty: 30 0RF pantoprazole [Protonix] 40 mg tablet,delayed release (DR/EC) 40 mg PO QDAY Qty: 30 0RF doxylamine succinate 25 mg tablet 25 mg PO Q6H PRN (Reason: nausea) Qty: 20 0RF hyoscyamine sulfate [Levsin/SL] 0.125 mg tablet, sublingual 0.125 mg PO TID Qty: 14 0RF Referrals: Gris Stein MD [Primary Care Provider] - In 1 week Problem List Clinical Impression: Gastritis Patient/Caregiver Discharge Instructions Education Materials: ED Gastritis (Adult) Additional Instructions: Please follow-up with your primary care provider in the next [address] of your abdomen and pelvis was negative for any acute findings. Your blood work and urinalysis were within normal limits I sent over medication to help you with your stomach acid and please pick it up and take it as indicated If your signs and symptoms continue you will need to follow-up with your primary care provider as a referral for a GI specialist may be indicated for an endoscopy For any evidence of worsening signs or symptoms return to the emergency room immediately Print Language: Nepali Stand Alone Forms: Alison Award Info., Patient Portal Info Letter PA/HAND COMPOSITOR Supervising Physician JUDIT/ANNIE Supervising Physician: Dr. Huerta
== END 2025-06-05 16:44 | disposition home or self-care (01) ==
PROVIDERS: Nurse Practitioner Primary Care; Emergency Provider Nurse Practitioner Family; PCP Family Medicine
DX: K29.70 Gastritis, unspecified, without bleeding (principal)
CPT/HCPCS: 36415; 74176; 80053; 81001; 81025; 83690; 85025; 99284; A9270

== ENCOUNTER → 2025-07-10 | Outpatient (CLI) | payer BC, SELFPAY ==
--- NOTE | 2025-07-10 16:40 | XR_ITS ---
Examination: Abdomen AP single view Technique: AP portable supine abdomen, single view Exam date and time: July 10, 2025, 1648 hrs. Indications: Abdominal pain beginning 2 months ago Findings: Moderate to large amounts of stool throughout the colon No obstruction No free air The osseous structures are intact Impression: Moderate to large amounts of stool throughout the colon
== END | disposition home or self-care (01) ==
PROVIDERS: PCP Family Medicine; Referring Provider Specialist; Visit Provider Specialist
DX: K59.00 Constipation, unspecified (principal)
CPT/HCPCS: 74018

== ENCOUNTER 2025-08-03 07:55 | Day surgery (SDC) | payer BC, SELFPAY ==
[2025-08-02 15:23] VITALS: BMI 23.2
[2025-08-03] VITALS (8 sets, daily range): BP systolic 92–115; BP diastolic 50–81; PULSE 62–78; RESP 12–21; TEMP 36.7–36.8; O2SAT 97–99; BMI 227.4
[2025-08-03] MEDS: BENZOCAINE 20% (Hurricaine) SPRAY 1 DOSE TOP (09:56)
[2025-08-03] MEDS: SODIUM CHLORIDE 0.9% 500 ML 500 ML 20 ML IV (09:56)
[2025-08-03] MEDS: fentaNYL CIT INJ 50 mCg/ML AMP 2ML (ASD USE ONLY) IVP (10:00)
[2025-08-03] MEDS: MIDAZOLAM INJ 1 MG/ML VIAL 2 ML (ASD USE ONLY) 2 MG IVP (10:00)
== END 2025-08-03 10:55 | disposition home or self-care (01) ==
PROVIDERS: PCP Family Medicine; Referring Provider Specialist; Visit Provider Specialist
PROC: (CPT 43239; principal; 2025-08-03 09:15)
DX: K29.50 Unspecified chronic gastritis without bleeding (principal); K20.90 Esophagitis, unspecified without bleeding; Z98.84 Bariatric surgery status
CPT/HCPCS: 43239; A4649; J1200; J2250; J3010; J7999; A9270

== ENCOUNTER → 2025-09-25 | Outpatient (CLI) | payer BC, SELFPAY ==
--- NOTE | 2025-09-25 15:48 | XR_ITS ---
Examination: Lumbar spine, 5 views Technique: Lumbar spine AP, lateral, coned lateral lower lumbar spine, bilateral obliques 5 views Exam date and time: September 25, 2025, 1620 hours, comparison March 13, 2022 INDICATIONS: Low back pain beginning 1 week ago. FINDINGS: Satisfactory alignment lumbar vertebral bodies on the lateral view No lumbar fracture Mild disc narrowing L5-S1 No spondylolisthesis IMPRESSION: No lumbar fracture Mild disc narrowing L5-S1
== END | disposition home or self-care (01) ==
PROVIDERS: PCP Family Medicine; Referring Provider Family Medicine; Visit Provider Family Medicine
DX: M51.370 Other intervertebral disc degeneration, lumbosacral region with discogenic back pain only (principal)
CPT/HCPCS: 72110